=== PATIENT | female | born 1985 | race Caucasian/White ===

== ENCOUNTER 2017-03-09 12:14 | Emergency (ER) | payer OTHER ==
[~2017-03-09] VITALS: Ht 152.4 cm; Wt 58.3 kg
[2017-03-09] MEDS ORDERED: PERCOCET 5/31 TABLET PO (15:06)
[2017-03-09] MEDS ORDERED: FLEXERIL10 MG PO (15:06)
[2017-03-09 15:20] VITALS: BP 101/66
== END 2017-03-09 15:20 | disposition home or self-care (01) ==
LOC: EME 12:14
DX: S20.229A Contusion of unspecified back wall of thorax, initial encounter (principal); S29.012A Strain of muscle and tendon of back wall of thorax, initial encounter; V44.5XXA Car driver injured in collision with heavy transport vehicle or bus in traffic accident, initial encounter; Z88.1 Allergy status to other antibiotic agents; Z88.0 Allergy status to penicillin
CPT/HCPCS: 70450; 71010; 72070; 72125; 99281; 99283

== ENCOUNTER 2017-06-26 21:20 | Emergency (ER) | payer OTHER ==
[~2017-06-26] VITALS: Ht 152.4 cm; Wt 59.8 kg
[~2017-06-26 21:20] MED LIST: FLEXERIL10 MG PO; PERCOCET 5/31 TABLET PO
[2017-06-26 22:22] LABS: INFLUENZA A VIRAL ANTIGEN NEGATIVE; INFLUENZA B VIRAL ANTIGEN NEGATIVE
[2017-06-27 00:27] LABS: INTERNAL CONTROL VALID? YES; MONOSPOT (MONONUCLEOSIS SEROL) NEGATIVE
[2017-06-27] MEDS ORDERED: MOTRIN600 MG PO (00:41)
[2017-06-27] MEDS ORDERED: KEFLEX500 MG PO (00:41)
[2017-06-27 00:53] VITALS: BP 97/50
== END 2017-06-27 01:02 | disposition home or self-care (01) ==
LOC: EXP 21:20 → EME 21:20 → EXP 06-27 01:02
PROVIDERS: Physician Assistant
DX: J02.9 Acute pharyngitis, unspecified (principal); R50.9 Fever, unspecified; R05 Cough; M54.2 Cervicalgia; F17.200 Nicotine dependence, unspecified, uncomplicated; Z88.0 Allergy status to penicillin
CPT/HCPCS: 86308; 87502; 87651 90; 99281; 99284